=== PATIENT | female | born 1980 | race Caucasian/White ===

== ENCOUNTER 2017-08-09 11:03 | Emergency (ER) | payer MEDICAID ==
[~2017-08-09] VITALS: Ht 175.3 cm; Wt 132.4 kg
[2017-08-09 11:14] VITALS: BP 138/85
== END 2017-08-09 12:30 | disposition home or self-care (01) ==
LOC: ED 11:03
DX: J20.9 Acute bronchitis, unspecified (principal)
CPT/HCPCS: J7613; J7644